=== PATIENT | female | born 1965 | race Caucasian/White ===

== ENCOUNTER 2018-07-26 00:43 | Emergency (ER) | payer SELFPAY ==
[2018-07-26 02:49] VITALS: BP 147/73; PULSE 61; TEMP 97.9; BMI 19.8
--- NOTE | 2018-07-26 03:05 | PDOC ---
Attending Attestation - Resident Resident Name: William Cao - ED Attending Attestation I have performed the following: I have examined & evaluated the patient, The case was reviewed & discussed with the resident, I agree w/resident's findings & plan - HPI HPI: 07/26/18 19:57 Pt is requesting trazodone; she has a bottle and is requesting more. - Physicial Exam PE: 07/26/18 19:57 Normal exam; agree with resident's exam. - Medical Decision Making 07/26/18 20:00 Pt is stable for discharge. She will be sent home with PMD follow up. We will not give her any thing for her anxiety. Heart Score/ECG Review - ECG Intrepretation Rhythm: Regular Rhythm - Hope Hope: Normal - P and CO Delta Wave(s) Present: No WPW: No - QRS Poor R Wave Progression: No Q Wave Present: No - ST and T Early Repolarization: No Non Specific ST-T Wave changes: No Flattened T Waves: No Prolonged Q-T Interval: No - ECG Impressions Normal ECG: Yes Non-specific ST Elevation: No Ischemic Changes: No Bradycardia: Yes (Rate55)
--- NOTE | 2018-07-26 04:53 | PDOC ---
History of Present Illness - General Chief Complaint: Pain, Acute Stated Complaint: NECK PAIN Time Seen by Provider: 07/26/18 02:59 History Source: Patient Exam Limitations: No Limitations - History of Present Illness Initial Comments: 07/26/18 06:36 53 yo female pmh of chronic headaches and difficulty sleeping presents to the ED with neck pain, CANO and trouble falling asleep tonight. Pt states she has had these complaints on and off for over 1 month and sees her PCP for this. She was given trazadone to help her sleep but did not take it tonight. Follow up appointment scheduled for 07/30 with her PCP. Pt states the neck pain and CANO are no different from past episodes tonight, denies changes in speech/vision, N/ V/F/C, weakness or numbness on one side of her face or body. Pt states she came to the ED tonight because of anxiety leading to difficulty sleeping and not for the neck pain or CANO, also denies NSAIDs for pain when offered. Denies all other ROS. Past History - Suicide/Smoking/Psychosocial Hx Smoking History: Never smoked Have you smoked in the past 12 months: No Hx Alcohol Use: No Drug/Substance Use Hx: No Review of Systems - Review of Systems Constitutional: No: Chills, Fever HEENTM: No: Eye Pain, Double Vision Respiratory: No: Shortness of Breath Cardiac (ROS): No: Chest Pain, Edema ABD/GI: No: Constipated, Diarrhea, Nausea, Vomiting Musculoskeletal: Yes: Other (bilateral neck pain chronic). No: Back Pain Neurological: Yes: Headache. No: Numbness, Paresthesia, Weakness Psychiatric: Yes: Anxiety (self reported, not treated) *Physical Exam - Vital Signs Last Vital Signs Temp Pulse Resp BP Pulse Ox 97.9 F 61 16 147/73 100 07/26/18 02:46 07/26/18 02:46 07/26/18 02:46 07/26/18 02:46 07/26/18 02:46 - Physical Exam General Appearance: Yes: Nourished, Appropriately Dressed. No: Apparent Distress HEENT: positive: EOMI, DUANE Respiratory/Chest: positive: Lungs Clear, Normal Breath Sounds Cardiovascular: positive: Regular Rhythm, Regular Rate, S1, S2. 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 negative: Facial Droop, Numbness, Sensory Deficit, Confused Moderate Sedation - Procedure Monitoring Vital Signs: Procedure Monitoring Vital Signs Temperature 97.9 F 07/26/18 02:46 Pulse Rate 61 07/26/18 02:46 Respiratory Rate 16 07/26/18 02:46 Blood Pressure 147/73 07/26/18 02:46 O2 Sat by Pulse Oximetry (%) 100 07/26/18 02:46 Medical Decision Making - Medical Decision Making 07/26/18 06:58 53 yo female presents to the ED with chronic neck pain, cano and difficulty sleeping. No concerning neurological s/s on HPI or exam Pt states the main reason she came in was for anxiety and difficulty *DC/Admit/Observation/Transfer Diagnosis at time of Disposition: Anxiety - Discharge Dispostion Disposition: HOME Condition at time of disposition: Stable Decision to Admit order: No - Referrals Referrals: Andree Bui [Primary Care Provider] - - Patient Instructions Printed Discharge Instructions: DI for Anxiety -- Adult Additional Instructions: Please keep your appointment on 07/30/2018 with your Primary Care Doctor and discuss your difficulty sleeping along with anxiety concerns. Continue taking your home dosed medications as prescribed by your Doctor. Return to the Emergency Room for new or worsening symptoms including but not limited to: severe headaches, changes in vision or speech, weakness or numbness on one side of your body. Thank you - Post Discharge Activity
--- NOTE | 2018-07-26 21:21 | EKG ---
Test Reason : Blood Pressure : / mmHG Vent. Rate : 055 BPM Atrial Rate : 055 BPM P-R Int : 186 ms QRS Dur : 102 ms QT Int : 426 ms P-R-T Axes : 060 037 037 degrees QTc Int : 407 ms SINUS BRADYCARDIA CANNOT RULE OUT ANTERIOR INFARCT , AGE UNDETERMINED ABNORMAL ECG NO PREVIOUS ECGS AVAILABLE Confirmed by MEL CLINE MD ([id number]) on 07/26/2018 9:20:52 PM Referred By: Confirmed By:MEL CLINE MD
== END 2018-07-26 05:15 | disposition home or self-care (01) ==
LOC: JER 00:43
DX: F41.9 Anxiety disorder, unspecified (principal)
CPT/HCPCS: 93005; 93010; 99281-25

== ENCOUNTER 2025-01-07 21:26 | Emergency (ER) | payer OTHER ==
[2025-01-07 21:36] VITALS: BP 153/68; PULSE 61; RESP 16; TEMP 98.1; BMI 29.2
[2025-01-07] MEDS ORDERED: ACETAMINOPHEN 325 MG TABLET (FP) ONE (22:38)
[2025-01-07] MEDS: ACETAMINOPHEN 325 MG TABLET (FP) PO ONE (22:41)
[2025-01-07 22:43] LABS: ABSOLUTE IMMATURE GRANULOCYTES 0.03 x10^3/uL (0.0-0.031); BASOPHILS # 0.03 x10^3/uL (0.01-0.08); EOSINOPHIL % 0.6 % (0.7-5.8); EOSINOPHILS # 0.05 x10^3/uL (0.04-0.36); HEMATOCRIT 37.1 % (34.1-44.9); HEMOGLOBIN 12.2 g/dL (11.2-15.7); MCHC 32.9 g/dl (32.2-35.5); MEAN CELL VOLUME 96.4 fl (79.4-94.8); MEAN PLT VOLUME 10.8 fl (9.4-12.3); MONOCYTE # 0.29 x10^3/uL (0.24-0.86); MONOCYTE % 3.3 % (4.7-12.5); PLATELET COUNT 175 x10^3/uL (182-369); RDW 12.8 % (12.3-16.6)
[2025-01-07 22:47] LABS: EPI CELLS 1 /uL (0-25.1); HYALINE CASTS 0 /uL (0-3.1); PH,URINE 6.5 (5.0-8.0); URINE APPEARANCE CLEAR; URINE BACTERIA 4 /uL (0-1359); URINE BILIRUBIN NEGATIVE (NEGATIVE); URINE COLOR YELLOW; URINE GLUCOSE (UA) NEGATIVE (NEGATIVE); URINE KETONE NEGATIVE (NEGATIVE); URINE LEUK ESTERASE NEGATIVE (NEGATIVE); URINE NITRITE NEGATIVE (NEGATIVE); URINE PROTEIN NEGATIVE (NEGATIVE); URINE RBC 58 /uL (0-23.9); URINE UROBILINOGEN 0.2 mg/dL (0.2-1.0); URINE WBC 1 /uL (0-25.8)
== END 2025-01-07 23:15 | disposition home or self-care (01) ==
LOC: JER 21:26
DX: K62.5 Hemorrhage of anus and rectum (principal); R11.0 Nausea; K62.89 Other specified diseases of anus and rectum; R10.30 Lower abdominal pain, unspecified
CPT/HCPCS: 36415; 81003; 85025; 87086; 99283-25